=== PATIENT | male | born 1960 | race African-American/Black ===

== ENCOUNTER 2019-05-28 11:03 | Emergency (ER) | payer MEDICAID ==
[~2019-05-28] VITALS: Ht 188 cm; Wt 68.0 kg
[2019-05-28 13:09] VITALS: BP 102/68
[2019-05-28] MEDS ORDERED: HYDROcodone-ACET 10/325MG TAB PO ONE (14:15)
[2019-05-28] MEDS ORDERED: KETOROLAC TROMETH 60MG/2ML VIAL IM ONE (15:00)
== END 2019-05-28 19:40 | disposition home or self-care (01) ==
LOC: EDBD 11:03 → ER 11:07
DX: M54.5 Low back pain (principal); K52.9 Noninfective gastroenteritis and colitis, unspecified
CPT/HCPCS: 74176; 93005; 96372; 99284; J1885